=== PATIENT | female | born 1940 | race Caucasian/White ===

== ENCOUNTER 2021-02-22 14:53 | Outpatient (CLI) | payer OTHER, MEDICARE | END 2021-02-22 14:54 | disposition home or self-care (01) | LOC: BICMAMMO 14:53 | PROVIDERS: ATTEND Family Medicine | DX: Z12.31 Encounter for screening mammogram for malignant neoplasm of breast (principal); Z98.890 Other specified postprocedural states; Z91.89 Other specified personal risk factors, not elsewhere classified | CPT/HCPCS: 77063; 77067 ==

== ENCOUNTER 2024-09-24 14:02 | Outpatient (CLI) | payer OTHER | END 2024-09-24 14:03 | disposition home or self-care (01) | LOC: SCSRAD 14:02 | PROVIDERS: ATTEND Family Medicine | DX: M54.6 Pain in thoracic spine (principal); M85.88 Other specified disorders of bone density and structure, other site | CPT/HCPCS: 72072 ==